=== PATIENT | female | born 1990 | race Caucasian/White ===

== ENCOUNTER 2018-01-15 19:59 | Emergency (ER) | payer OTHER ==
[~2018-01-15] VITALS: Ht 167.6 cm; Wt 83.9 kg
[~2018-01-15 19:59] MED LIST: MIRALAX POWDER17 G1 PO; ULTRAM50 MG PO
[2018-01-15] MEDS ORDERED: AMOXICILLIN500 M2 PO (20:16)
[2018-01-15] MEDS ORDERED: Motrin,Rufen800 MG PO (20:16)
== END 2018-01-15 20:27 | disposition home or self-care (01) ==
LOC: ED 19:59
DX: K08.89 Other specified disorders of teeth and supporting structures (principal); F17.200 Nicotine dependence, unspecified, uncomplicated; Z79.899 Other long term (current) drug therapy

== ENCOUNTER 2020-02-25 19:32 | Emergency (ER) | payer OTHER ==
[~2020-02-25] VITALS: Ht 165.1 cm; Wt 69.9 kg
[~2020-02-25 19:32] MED LIST changes: +AMOXICILLIN500 M2 PO; +Motrin,Rufen800 MG PO
[2020-02-25] MEDS ORDERED: KEFLEX500 M1 PO (20:22)
[2020-02-29] MEDS ORDERED: SUBOXONE 4 MG-1 EACH SL (08:22)
== END 2020-02-25 20:45 | disposition home or self-care (01) ==
LOC: ED 19:32
DX: S50.352A Superficial foreign body of left elbow, initial encounter (principal); M79.602 Pain in left arm; M25.522 Pain in left elbow; Z79.899 Other long term (current) drug therapy; X58.XXXA Exposure to other specified factors, initial encounter; Y93.89 Activity, other specified; Y92.89 Other specified places as the place of occurrence of the external cause; Y99.8 Other external cause status

== ENCOUNTER → 2020-02-29 | Day surgery (SDC) | payer OTHER ==
[~2020-02-29] VITALS: Ht 165.1 cm; Wt 69.9 kg
[~2020-02-29] MED LIST changes: +KEFLEX500 M1 PO; +SUBOXONE 4 MG-1 EACH SL
[2020-02-29 08:15] VITALS: BP 125/73
[2020-02-29 10:34] VITALS: BP 114/63
[2020-02-29 10:49] VITALS: BP 114/60
[2020-02-29 11:04] VITALS: BP 113/69
== END | disposition home or self-care (01) ==
LOC: SDC 02-28 11:00
DX: M79.5 Residual foreign body in soft tissue (principal); Z79.899 Other long term (current) drug therapy

== ENCOUNTER 2020-05-26 17:22 | Emergency (ER) | payer OTHER ==
[~2020-05-26] VITALS: Ht 167.6 cm; Wt 65.3 kg
== END 2020-05-26 18:32 | disposition home or self-care (01) ==
LOC: ED 17:22
DX: N94.6 Dysmenorrhea, unspecified (principal); F17.200 Nicotine dependence, unspecified, uncomplicated; Z79.899 Other long term (current) drug therapy

== ENCOUNTER → 2024-06-23 | Outpatient (CLI) | payer OTHER ==
[2024-06-23 17:28] LABS: BASO % 0.4 % (0.0-1.0); EOS % 0.6 % (1.0-4.0); LYMPH # 1.1 10*3/uL (1.3-4.4); LYMPH % 20.8 % (27.0-41.0); MEAN CORPUSCULAR HGB 33.4 pg (27.0-31.0); MEAN CORPUSCULAR HGB CONC 34.1 g/dl (33.0-37.0); MEAN PLATELET VOLUME 9.1 fl (9.6-12.3); MONO # 0.3 10*3/uL (0.1-1.0); MONO % 5.3 % (3.0-9.0); NEUT # 3.9 10*3/uL (2.3-7.9); NEUT % 72.2 % (47.0-73.0); PLATELET COUNT AUTOMATED 148 10*3/uL (130-400); RED BLOOD COUNT 4.49 10*6/uL (4.10-5.10); RED CELL DISTRI WIDTH 13.1 % (0-14.5); WHITE BLOOD COUNT 5.4 10*3/uL (4.8-10.8)
[2024-06-23 17:51] LABS: ALKALINE PHOSPHATASE 87 U/L (46-116); BUN < 5 mg/dl (9-23); CHLORIDE 105 mmol/L (98-107); CHOLESTEROL 186 mg/dL (<200); LDL CHOLESTEROL 127 mg/dL (9-159); POTASSIUM 3.8 mmol/L (3.4-5.1); SGPT/ALT 100 U/L (5-49); TOTAL PROTEIN 8.3 gm/dL (6.0-8.0); TRIGLYCERIDES 153 mg/dl (<150)
== END | disposition home or self-care (01) ==
LOC: LAB 17:03
PROVIDERS: ATTEND Nurse Practitioner Family
DX: M25.551 Pain in right hip (principal); B19.20 Unspecified viral hepatitis C without hepatic coma; E66.9 Obesity, unspecified; F32.A Depression, unspecified

== ENCOUNTER → 2024-07-19 | Outpatient (CLI) | payer OTHER ==
[~2024-07-19] MED LIST changes: +PANTOPRAZOLE SO40 MG PO
[2024-07-19 17:24] LABS: BASO % 0.5 % (0.0-1.0); EOS # 0.4 10*3/uL (0.0-0.4); EOS % 6.2 % (1.0-4.0); HEMATOCRIT 41.7 % (37.0-47.0); LYMPH # 1.9 10*3/uL (1.3-4.4); LYMPH % 33.3 % (27.0-41.0); MEAN CELL VOLUME 99.3 fl (81.0-99.0); MEAN CORPUSCULAR HGB 32.4 pg (27.0-31.0); MEAN CORPUSCULAR HGB CONC 32.6 g/dl (33.0-37.0); MEAN PLATELET VOLUME 9.2 fl (9.6-12.3); MONO # 0.5 10*3/uL (0.1-1.0); MONO % 8.9 % (3.0-9.0); NEUT % 50.8 % (47.0-73.0); PLATELET COUNT AUTOMATED 243 10*3/uL (130-400); RED CELL DISTRI WIDTH 12.4 % (0-14.5); WHITE BLOOD COUNT 5.8 10*3/uL (4.8-10.8)
[2024-07-19 17:53] LABS: TOTAL PROTEIN 7.5 gm/dL (6.0-8.0)
[2024-07-19 17:54] LABS: ALKALINE PHOSPHATASE 57 U/L (46-116); BUN 8 mg/dl (9-23); CHLORIDE 104 mmol/L (98-107); LIPASE 77 U/L (12-53); POTASSIUM 3.5 mmol/L (3.4-5.1); SGPT/ALT 88 U/L (5-49); TOTAL PROTEIN 7.5 gm/dL (6.0-8.0)
[2024-07-20 19:06] LABS: HCV LOG10 5.584 (.); HEPATITIS C QNT 384000 IU/mL (.)
== END | disposition home or self-care (01) ==
LOC: LAB 16:50
PROVIDERS: ATTEND Internal Medicine Gastroenterology
DX: B18.2 Chronic viral hepatitis C (principal)

== ENCOUNTER → 2025-06-22 | Outpatient (CLI) | payer BC ==
[2025-06-23 22:06] LABS: HEPATITIS C QUANTITATION HCV Not Detected IU/mL (.)
== END | disposition home or self-care (01) ==
LOC: LAB 17:20
PROVIDERS: ATTEND Nurse Practitioner Family
DX: B18.2 Chronic viral hepatitis C (principal)